=== PATIENT | male | born 1960 | race Caucasian/White ===

== ENCOUNTER → 2016-05-17 | Outpatient (CLI) | payer OTHER ==
[~2016-05-17] VITALS: Ht 182.9 cm; Wt 120.2 kg
[~2016-05-17] MED LIST: ALBU17IN INH; AMLO5TAB2 PO; ASPI81TA85 PO; ATOR40TA PO; CARV6.25 PO; DICL75TA PO; INSUDET SC; INSULANT SC; IRON GLYCINATE PO; LOSA50TA21 PO; METF500T PO; MULTTAB37 PO; NAPR220C PO; NAPR250T45 PO; NEUR800T PO; NS 1,000 ML IV SCH; PROPOFOL 200 MG/20 ML VIAL As Ordered ONE; ROBA750T4 PO; THERTAB30 PO; TYLE167L PO; TYLE325T5 PO; TYLE325T5 PR; VITA100T5 PO; VITA500C10 PO; VOLT1GEL24 TD; VOLT1GEL24 TOP
--- NOTE | 2016-05-17 09:34 | ROOR ---
Patient Name: Huang Castaneda Procedure Date: 05/17/2016 9:12 AM Date of : 1960 Age: 56 Room: [facility] Gender: Male Note Status: Finalized Procedure: Colonoscopy Indications: Screening for colorectal malignant neoplasm Providers: Miguel Ángel RENEE MD Referring MD: Sonya Menjivar NP Requesting Provider: Medicines: Monitored Anesthesia Care Complications: No immediate complications. Procedure: Pre-Anesthesia Assessment: - The heart rate, respiratory rate, oxygen saturations, blood pressure, adequacy of pulmonary ventilation, and response to care were monitored throughout the procedure. The Colonoscope was introduced through the anus and advanced to the cecum, identified by appendiceal orifice and ileocecal valve. The colonoscopy was performed without difficulty. The patient tolerated the procedure well. The quality of the bowel preparation was good. Findings: The perianal and digital rectal examinations were normal. Four sessile and semi-pedunculated polyps were found in the sigmoid colon and distal descending colon. The polyps were 6 to 9 mm in size. These polyps were removed with a cold snare. Resection and retrieval were complete. The exam was otherwise without abnormality on direct and retroflexion views. (Exam: Complete, Prep: Good or Excellent.) Impression: - Four 6 to 9 mm polyps in the sigmoid colon and in the distal descending colon, removed with a cold snare. Resected and retrieved. - The examination was otherwise normal on direct and retroflexion views. Recommendation: - Repeat colonoscopy in 3 years for surveillance. Miguel Ángel Renee MD Miguel Ángel RENEE MD 05/17/2016 9:33:43 AM This report has been signed electronically. Number of Addenda: 0 Note Initiated On: 05/17/2016 9:12 AM Estimated Blood Loss: Estimated blood loss: none.
[2016-05-17 09:45] VITALS: BP 156/101
== END | disposition home or self-care (01) ==
LOC: M OPP 08:11
PROVIDERS: ATTEND Internal Medicine Gastroenterology
DX: Z12.11 Encounter for screening for malignant neoplasm of colon (principal); D12.5 Benign neoplasm of sigmoid colon; D12.4 Benign neoplasm of descending colon; I10 Essential (primary) hypertension; E78.00 Pure hypercholesterolemia, unspecified; M19.90 Unspecified osteoarthritis, unspecified site; M48.00 Spinal stenosis, site unspecified; Z79.899 Other long term (current) drug therapy; Z79.82 Long term (current) use of aspirin; Z79.4 Long term (current) use of insulin; Z88.8 Allergy status to other drugs, medicaments and biological substances; Z88.1 Allergy status to other antibiotic agents

== ENCOUNTER → 2016-06-20 | Outpatient (CLI) | payer OTHER ==
[~2016-06-20] MED LIST changes: -NS 1,000 ML IV SCH; -PROPOFOL 200 MG/20 ML VIAL As Ordered ONE
[2016-06-23 00:09] LABS: PSA % FREE 28.4 % (.); PSA FREE 1.42 ng/mL
== END ==
LOC: M SMT 14:21
PROVIDERS: ATTEND Nurse Practitioner Women's Health
DX: R97.20 Elevated prostate specific antigen [PSA] (principal)

== ENCOUNTER → 2016-06-29 | Outpatient (CLI) | payer OTHER ==
--- NOTE | 2016-06-29 13:47 | REP ---
THYROID ULTRASOUND: Real-time sonographic evaluation of the thyroid performed and compared to a prior study of 02/26/2014. Right lobe measures 5.0 x 2.8 x 2.1 cm and left lobe 5.7 x 1.9 x 1.6 cm. Two nodules are seen in the right mid lobe. A lateral nodule measures 1.4 x 1.2 x 1.2 cm and just medial to this another nodule measures 7 x 5 x 8 mm. These are essentially unchanged when compared to the prior exam. IMPRESSION: Two stable right thyroid nodules as discussed above. Signed by Huang Denney MD 06/29/2016 05:39 P
== END ==
LOC: M RAD 11:37
PROVIDERS: ATTEND Nurse Practitioner Adult Health
DX: E04.9 Nontoxic goiter, unspecified (principal)

== ENCOUNTER → 2016-07-22 | Outpatient (CLI) | payer OTHER ==
[~2016-07-22] MED LIST changes: +ASCO500T PO; +DOXY10CA PO; +GABA600T PO; +LEVA500T PO; +LOSA100T36 PO; +TOPA50TA7 PO; +TORS20TA2 PO
--- NOTE | 2016-07-22 11:37 | REP ---
TRANSRECTAL PROSTATE ULTRASOUND WITH ULTRASOUND GUIDANCE FOR PROSTATE BIOPSY: Real-time sonographic evaluation of the prostate performed utilizing transrectal probe. The size of the gland is 5.1 x 4.4 x 5.4 cm for a total volume of 64.1 mL. Heterogeneous echotexture is noted throughout the prostate. A small nodule on the left measures 6 x 5 mm and a small nodule on the right measures 6 x 4 mm. Seminal vesicles appear unremarkable. Ultrasound guidance was provided by Dr. Casas who performed ultrasound guided biopsy of the prostate. Signed by Huang Denney MD 07/22/2016 04:38 P
== END ==
LOC: M SMT PRO 08:35
PROVIDERS: ATTEND Urology
DX: R97.20 Elevated prostate specific antigen [PSA] (principal); N41.8 Other inflammatory diseases of prostate; Z88.8 Allergy status to other drugs, medicaments and biological substances
CPT/HCPCS: 76872; 76942; G0416

== ENCOUNTER 2016-07-24 12:31 | Inpatient (IN) | payer OTHER ==
[~2016-07-24] VITALS: Ht 182.9 cm; Wt 116.2 kg
[~2016-07-24 12:31] MED LIST changes: -ASCO500T PO; -DOXY10CA PO; -GABA600T PO; -LEVA500T PO; -LOSA100T36 PO; -TOPA50TA7 PO; -TORS20TA2 PO
[2016-07-24 15:29] LABS: BASO % 0.2 % (0.0-1.0); EOS # 0.1 K/mm3 (0.0-0.50); EOS % 0.7 % (0.0-3.0); LARGE UNSTAINED CELL # 0.3 K/mm3 (0.0-0.4); LARGE UNSTAINED CELL % 1.5 % (0.0-4.0); LYMPH # 1.4 K/mm3 (1.5-4.5); MEAN CORPUSCULAR HEMOGLOBIN 31.2 pg (27.0-33.0); MEAN CORPUSCULAR HGB CONC 34.7 g/dl (32.0-36.5); MEAN CORPUSCULAR VOLUME 89.9 fl (80.0-96.0); MONO # 0.6 K/mm3 (0.0-0.8); MONO % 3.5 % (0.0-5.0); NEUTROPHILS # 14.6 K/mm3 (1.8-7.7); PLATELET COUNT, AUTOMATED 218 k/mm3 (150-450); RED CELL DISTRIBUTION WIDTH 13.7 % (11.5-14.5); WHITE BLOOD COUNT 16.9 K/mm3 (4.0-10.0)
[2016-07-24 15:45] LABS: ANION GAP 5 MEQ/L (8-16); BLOOD UREA NITROGEN 13 MG/DL (7-18); CARBON DIOXIDE LEVEL 30 MEQ/L (21-32); CHLORIDE LEVEL 102 MEQ/L (98-107); CREATININE FOR GFR 1.01 MG/DL (0.70-1.30); GLOMERULAR FILTRATION RATE > 60.0 (>56); GLUCOSE, FASTING 142 MG/DL (70-105); POTASSIUM SERUM 3.2 MEQ/L (3.5-5.1); SODIUM LEVEL 137 MEQ/L (136-145)
[2016-07-24] MEDS ORDERED: CIPROFLOXACIN 400 MG in APPROPRIATE DILUENT 1 EA IV ONE (16:00)
--- NOTE | 2016-07-24 16:31 | SMCUROLCON ---
Urology Consultation General Date of Consultation 07/24/16 Reason For Consultation This 56yo male patient is seen for Fever Tmax 103f post TRUS biopsy (07/22/16); leukocytosis; DM; HTN. PVR 63cc. Plan: UC/BC, IV Rocephin, 23hr observation with Hospitalist (notified). Full consultation dictated. History of Present Illness The patient is a -year-old with a past medical history for . Allergies Allergies: Coded Allergies: Bacitracin (Verified Allergy, Intermediate, RASH, 02/25/14) Neomycin (Verified Allergy, Intermediate, RASH, 02/25/14) Polymyxin B (Verified Allergy, Intermediate, RASH, 02/25/14) Vital Signs/I&O Vital Signs Date Time Temp Pulse Resp B/P (MAP) Pulse Ox O2 Delivery O2 Flow Rate FiO2 07/24/16 15:01 07/24/16 12:32 98.0 84 18 96 Room Air Laboratory Data 24H Labs Laboratory Tests 2 07/24/16 14:56: White Blood Count 16.9H, Red Blood Count 4.41, Hemoglobin 13.8L, Hematocrit 39.7L, Mean Corpuscular Volume 89.9, Mean Corpuscular Hemoglobin 31.2, Mean Corpuscular Hemoglobin Concent 34.7, Red Cell Distribution Width 13.7, Platelet Count 218, Neutrophils (%) (Auto) 86.0H, Lymphocytes (%) (Auto) 8.0L, Monocytes (%) (Auto) 3.5, Eosinophils (%) (Auto) 0.7, Basophils (%) (Auto) 0.2, Neutrophils # (Auto) 14.6H, Lymphocytes # (Auto) 1.4L, Monocytes # (Auto) 0.6, Eosinophils # (Auto) 0.1, Basophils # (Auto) 0.0, Large Unclassified Cells % 1.5 , Large Unclassified Cells # 0.3, Urine Appearance HAZY, Urine Color YELLOW, Urine pH 7.0, Urine Specific [place] 1.016, Urine Protein NEGATIVE, Urine Glucose (UA) NEGATIVE, Urine Ketones NEGATIVE, Urine Urobilinogen 0.2, Urine Bilirubin NEGATIVE, Urine Leukocyte Esterase 3+H, Urine Blood 1+H, Urine Nitrite NEGATIVE, Urine WBC (Auto) 166H, Urine RBC (Auto) 100H, Urine Hyaline Casts (Auto) 0, Urine Bacteria (Auto) 3+H, Urine Squamous Epithelial Cells 0, Urine Amorphous Sediment SMALLH, Urine Mucus (Auto) SMALL, Urine Sperm (Auto) SMALLH, Anion Gap 5L, Glomerular Filtration Rate > 60.0, Blood Urea Nitrogen 13 , Creatinine 1.01, Sodium Level 137, Potassium Level 3.2L, Chloride Level 102, Carbon Dioxide Level 30, Calcium Level 9.0 CBC/BMP Laboratory Tests 07/24/16 14:56 Red Blood Count 4.41, Mean Corpuscular Volume 89.9, Mean Corpuscular Hemoglobin 31.2, Mean Corpuscular Hemoglobin Concent 34.7, Red Cell Distribution Width 13.7 , Neutrophils (%) (Auto) 86.0 H, Lymphocytes (%) (Auto) 8.0 L, Monocytes (%) ( Auto) 3.5, Eosinophils (%) (Auto) 0.7, Basophils (%) (Auto) 0.2, Neutrophils # ( Auto) 14.6 H, Lymphocytes # (Auto) 1.4 L, Monocytes # (Auto) 0.6, Eosinophils # (Auto) 0.1, Basophils # (Auto) 0.0, Calcium Level 9.0 Microbiology Microbiology 07/24/16 Blood Culture, Received Pending 07/24/16 Urine Culture, Received Pending 07/24/16 Urine Culture, Received Pending JULIAN GREEN MD Jul 24, 2016 16:31
[2016-07-24] MEDS ORDERED: TORS20TA2 PO (16:36)
[2016-07-24] MEDS ORDERED: GABA600T PO (16:36)
[2016-07-24] MEDS ORDERED: LOSA100T36 PO (16:36)
[2016-07-24] MEDS ORDERED: ASCO500T PO (16:36)
[2016-07-24] MEDS ORDERED: TOPA50TA7 PO (16:36)
[2016-07-24] MEDS ORDERED: cefTRIAXone SOD 2 GM in D5W MINI-BAG PLUS 50 ML IV ONE (16:45)
[2016-07-24] MEDS ORDERED: GLUCAGON FOR INJ 1 MG VIAL (J1610) SC PRN (17:00)
[2016-07-24] MEDS ORDERED: DEXTROSE 50% 50 ML SYRINGE IV PRN (17:00)
[2016-07-24] MEDS ORDERED: GLUCOSE 4 GM CHEW TABLET PO PRN (17:00)
--- NOTE | 2016-07-24 17:22 | CR ---
DATE OF CONSULTATION: 07/24/2016 REASON FOR CONSULTATION: This 56-year-old was evaluated and consultation is requested by Dr. Norton on 07/24/2016, for fever. Following a transrectal ultrasonographic-guided biopsy of the prostate (07/22/2016), he developed a temperature maximum (T-max) of 103 degrees Fahrenheit. Following notification of urology, he was instructed to present to the emergency department (ED) at [facility]. Despite being on oral ciprofloxacin, intermittent febrile episodes are subjectively noted. There is no history of voiding symptoms, gross hematuria, urinary tract infection, urolithiasis, flank pain or constitutional symptoms. PAST MEDICAL HISTORY: Significant for diabetes mellitus, hypertension, hypercholesterolemia, spinal stenosis (L1-2), left ankle surgery and headaches. REVIEW OF SYSTEMS: Negative for pulmonary or cardiac pathology, thyroid problems, cerebrovascular accident (CVA), glaucoma, peptic ulcer disease, urolithiasis, cholelithiasis, or blood-borne disease. CURRENT MEDICATIONS: Metformin, Topamax, ProAir, Lantus, carvedilol, Lipitor, aspirin, losartan and Norvasc. ALLERGIES: He has no allergies to medications. SOCIAL HISTORY: He is and has two children. He is a [id number] smoker who quit 10 years previously. He has been dry from alcohol for three years. FAMILY HISTORY: Significant for lung cancer on the paternal side, and diabetes mellitus, hypertension and hypercholesterolemia on the maternal side. PHYSICAL EXAMINATION: General examination revealed a subjectively warm individual. His heart rate was 84, respiratory rate 18, blood pressure was 116/76, and temperature was 101.6 degrees Fahrenheit. Palpation of the head and neck failed to reveal the presence of lymphadenopathy. Auscultation of the chest is clear. Normal heart sounds. Examination of the back and abdomen were benign. He was moderately obese. Bladder scan post-void residual determination (07/24/2016) recorded 63 mL of urine. A urinalysis (07/24/2016) demonstrated 1+ microhematuria, 3+ leukocytes, with a pH of 7.0. Nitrites were negative. Serum hematologic and biochemical indices determination (07/24/2016) demonstrated a hemoglobin of 13.8, leukocyte count of 16.9 with a left shift, and a creatinine of 1.0. Urine and blood cultures (07/24/2016) are pending at the time of this dictation. ASSESSMENT: 1. Question sepsis, status post transrectal ultrasonographic-guided biopsy of the prostate (07/22/2016). 2. Elevated serum prostate-specific antigen (PSA). 3. Diabetes mellitus. 4. Hypertension. 5. Hypercholesterolemia. 6. Aspirin therapy. PLAN: The above findings were discussed with the patient, hospitalist, and emergentologist. Admission for 23-hour observation is appropriate. Serial complete blood count (CBC) determinations are appropriate for leukocytosis trend. Intravenous Rocephin will be provided until definitive urine and blood cultures are available. Giordano catheter may be deferred at present. Should you require additional information, please to not hesitate to contact me. Thank you for the confidence of your referral.
--- NOTE | 2016-07-24 17:24 | HPEPDOC ---
General Date of Admission 07/24/2016 Chief Complaint The patient is a 56-year-old male Presented to the ER with fever and burning with urination. History of Present Illness Patient is a 56 year old male with a PMHx of HTN, IDDM2, DLP, Hx of Polysubstance abuse and Alcoholism and Chronic Back pain who presented to the ER with fever and burning with urination. Patient notes that on Monday (07/22/2016) he had a prostate biopsy because of an elevated PSA found on blood work. Since the biopsy he was prescribed Ciprofloxacin prophylactically. He took the medication as prescribed. On Monday he noted that he had chills and measured his temperature at 103F. He went to sleep and noticed that he had urinary incontinence that morning. Upon urination he noted dysuria. He denies any blood in his urine. He denies nausea, vomiting, abdominal pain, and constipation, shortness of breath, chest pain, cough or palpitations. He does note a 1 day history of diarrhea after he took a laxative. Home Medications Scheduled (Theragran-M) 1 Tab Tab, 1 TAB PO DAILY, (Reported) Amlodipine Besylate (Amlodipine Besylate) 5 Mg Tab, 5 MG PO BID, (Reported) Ascorbic Acid (Ascorbic Acid) 500 Mg Tab, 500 MG PO DAILY, (Reported) Aspirin (Aspir-81) 81 Mg Tab, 81 MG PO DAILY, (Reported) Atorvastatin Calcium (Atorvastatin Calcium) 40 Mg Tab, 40 MG PO DAILY, (Reported ) Carvedilol (Carvedilol) 6.25 Mg Tab, 6.25 MG PO BID, (Reported) Gabapentin (Gabapentin) 600 Mg Tab, 600 MG PO TID, (Reported) Insulin Glargine (Lantus) 1 Units/0.01 Ml Susp, 40 UNITS SC QHS, (Reported) Losartan Potassium (Losartan Potassium) 100 Mg Tab, 100 MG PO DAILY, (Reported) Metformin Hydrochloride (Metformin HCl) 500 Mg Tab, 500 MG PO BID, (Reported) Topiramate (Topamax) 50 Mg Tab, 50 MG PO DAILY, (Reported) Torsemide (Torsemide) 20 Mg Tab, 40 MG PO DAILY, (Reported) Scheduled PRN (Voltaren) 1 % Gel, 1 DOSE TD for BACK PAIN, (Reported) applies to lower back Acetaminophen (Tylenol) 325 Mg Tab, 650 MG PO PRN PRN for PAIN, (Reported) Albuterol Sulfate (Ventolin Hfa) 200 Puff/8 Gm Aers, 2 PUFF INH Q4HP PRN for SHORTNESS OF BREATH, (Reported) Methocarbamol (Robaxin-750) 750 Mg Tab, 750 MG PO BID PRN for MUSCLE SPASMS, ( Reported) takes in the morning when he first starts moving, will take more prn spasms Allergies Coded Allergies: Bacitracin (Verified Allergy, Intermediate, RASH, 02/25/14) Neomycin (Verified Allergy, Intermediate, RASH, 02/25/14) Polymyxin B (Verified Allergy, Intermediate, RASH, 02/25/14) Past Medical History Medical History HTN, IDDM2, DLP, Hx of Polysubstance abuse and Alcoholism and Chronic Back pain Surgical History Left ankle fracture 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 Family History - Non-contributory Social History - Denies the use of alcohol, tobacco or illicit drugs - Denies recent travel or sick contacts - Lives with room mate - Occupation; retired [employer] worker Review of Symptoms Other systems Constitutional: Denies weight loss, change in appetite, or recent trauma Eyes: No visual changes or eye pain Ears, Nose, Throat: Denies nose bleeds, or difficulty swallowing Cardiovascular: Denies chest pain, sweating, or orthopnea Respiratory: Denies cough, wheezing, or shortness of breath GI: Emerson nausea, vomiting, abdominal pain or constipation, Positive diarrhea : Pain with urination and increased frequency Musculoskeletal: Denies joint pain or swelling Neuro / Psych: Denies muscle weakness or sensory loss Skin: No skin rashes noted All other review of systems negative; otherwise stated in history of present illness Vital Signs - Vitals: BP 116/76, HR 84, RR 18, Sat 96%RA, Temp 101.6F - General: Lying in bed, No acute distress, Speaking in full sentences, AAOx3 - HEENT: NC, AT, PERRLA, EOMI - CVS: RRR, +S1S2, - Lungs: Fair air entry bilaterally, Clear to auscultation, No wheezing / rales / rhonchi - Abdomen: Soft, Non-distended, Non-tender, + Bowel sounds x 4 - Extremities: + PPx4, No lower extremity edema, No calf tenderness - Neuro: No focal motor or sensory deficit - Skin: No visible rashes Laboratory Data Labs 24H Laboratory Tests 2 07/24/16 14:56: White Blood Count 16.9H, Red Blood Count 4.41, Hemoglobin 13.8L, Hematocrit 39.7L, Mean Corpuscular Volume 89.9, Mean Corpuscular Hemoglobin 31.2, Mean Corpuscular Hemoglobin Concent 34.7, Red Cell Distribution Width 13.7, Platelet Count 218, Neutrophils (%) (Auto) 86.0H, Lymphocytes (%) (Auto) 8.0L, Monocytes (%) (Auto) 3.5, Eosinophils (%) (Auto) 0.7, Basophils (%) (Auto) 0.2, Neutrophils # (Auto) 14.6H, Lymphocytes # (Auto) 1.4L, Monocytes # (Auto) 0.6, Eosinophils # (Auto) 0.1, Basophils # (Auto) 0.0, Large Unclassified Cells % 1.5 , Large Unclassified Cells # 0.3, Urine Appearance HAZY, Urine Color YELLOW, Urine pH 7.0, Urine Specific [place] 1.016, Urine Protein NEGATIVE, Urine Glucose (UA) NEGATIVE, Urine Ketones NEGATIVE, Urine Urobilinogen 0.2, Urine Bilirubin NEGATIVE, Urine Leukocyte Esterase 3+H, Urine Blood 1+H, Urine Nitrite NEGATIVE, Urine WBC (Auto) 166H, Urine RBC (Auto) 100H, Urine Hyaline Casts (Auto) 0, Urine Bacteria (Auto) 3+H, Urine Squamous Epithelial Cells 0, Urine Amorphous Sediment SMALLH, Urine Mucus (Auto) SMALL, Urine Sperm (Auto) SMALLH, Anion Gap 5L, Glomerular Filtration Rate > 60.0, Blood Urea Nitrogen 13 , Creatinine 1.01, Sodium Level 137, Potassium Level 3.2L, Chloride Level 102, Carbon Dioxide Level 30, Calcium Level 9.0 CBC/BMP Laboratory Tests 07/24/16 14:56 Red Blood Count 4.41, Mean Corpuscular Volume 89.9, Mean Corpuscular Hemoglobin 31.2, Mean Corpuscular Hemoglobin Concent 34.7, Red Cell Distribution Width 13.7 , Neutrophils (%) (Auto) 86.0 H, Lymphocytes (%) (Auto) 8.0 L, Monocytes (%) ( Auto) 3.5, Eosinophils (%) (Auto) 0.7, Basophils (%) (Auto) 0.2, Neutrophils # ( Auto) 14.6 H, Lymphocytes # (Auto) 1.4 L, Monocytes # (Auto) 0.6, Eosinophils # (Auto) 0.1, Basophils # (Auto) 0.0, Calcium Level 9.0 Microbiology Microbiology 07/24/16 Blood Culture, Received Pending 07/24/16 Urine Culture, Received Pending 07/24/16 Urine Culture, Received Pending Plan / VTE VTE Prophylaxis Ordered?: Yes Plan Plan Fever and dysuria likely 2/2 complicated urinary tract infection - Recent history of prostate biopsy and failure out prophylactic Ciprofloxacin - Physical unrevealing - Elevated WBC - UA consistent with infection - Will check stat lactic acid - Will follow urine culture and blood cultures - c/w Ceftriaxone for now - Discussed case with Urology (Dr. Booth) will be on consult Elevated creatinine likely 2/2 dehydration - will give gentle IV fluid hydration Asthma - c/w albuterol inhaled therapy HTN - c/ amlodipine and carvedilol with holding parameters - will hold torsemide and losartan (re: mild Cr elevation) IDDM2 - c/w ISS - Will c/w home Lantus DLP - c/w atorvastatin Headache - c/w topiramate Hx of Polysubstance abuse and Alcoholism Chronic Back pain - c/w gabapentin and topical cream DVT prophylaxis - Will start SCDs KAYE ZAMBRANO MD Jul 24, 2016 17:24
[2016-07-24] MEDS ORDERED: ALBUTEROL 90 MCG/ACT 8GM HFA INHALER INH PRN (17:30)
[2016-07-24] MEDS: NS 1,000 ML IV SCH (17:30)
[2016-07-24] MEDS ORDERED: METHOCARBAMOL 750 MG TAB PO PRN (17:30)
[2016-07-24] MEDS: ACETAMINOPHEN TAB 650MG DOSE (2X325MG) PO PRN ×2 (17:34→22:29)
[2016-07-24] MEDS: HumaLOG INSULIN (NovoLOG) PER UNIT SC SCH ×2 (17:57→21:00)
[2016-07-24] MEDS ORDERED: POTASSIUM CHLORIDE 10 MEQ SR TABLET PO ONE (19:00)
[2016-07-24] MEDS: GABAPENTIN 300 MG CAP PO SCH (21:03)
[2016-07-24] MEDS: amLODIPine 5 MG TAB PO SCH (21:05)
[2016-07-24] MEDS: CARVedilol 6.25 MG TAB PO SCH (21:05)
[2016-07-24] MEDS: LEVEMIR (INSULIN DETEMIR) 1 UNITS/0.01ML SC SCH (21:06)
[2016-07-24 22:00] VITALS: BP 136/66
[2016-07-25 02:00] VITALS: BP 113/60
[2016-07-25] MEDS: NS 1,000 ML IV SCH (05:59)
[2016-07-25 06:00] VITALS: BP 122/58
[2016-07-25] MEDS: cefTRIAXone SOD 2 GM in D5W MINI-BAG PLUS 50 ML IV SCH ×2 (06:03→17:19)
[2016-07-25 08:03] LABS: BASO % 0.3 % (0.0-1.0); EOS # 0.1 K/mm3 (0.0-0.50); EOS % 0.9 % (0.0-3.0); LARGE UNSTAINED CELL # 0.3 K/mm3 (0.0-0.4); LARGE UNSTAINED CELL % 2.3 % (0.0-4.0); LYMPH # 1.6 K/mm3 (1.5-4.5); LYMPH % 12.2 % (24.0-44.0); MEAN CORPUSCULAR HEMOGLOBIN 30.1 pg (27.0-33.0); MEAN CORPUSCULAR HGB CONC 33.3 g/dl (32.0-36.5); MEAN CORPUSCULAR VOLUME 90.5 fl (80.0-96.0); MONO # 0.8 K/mm3 (0.0-0.8); MONO % 6.7 % (0.0-5.0); NEUTROPHILS # 8.8 K/mm3 (1.8-7.7); NEUTROPHILS % 77.5 % (36.0-66.0); PLATELET COUNT, AUTOMATED 211 k/mm3 (150-450); RED CELL DISTRIBUTION WIDTH 13.8 % (11.5-14.5); WHITE BLOOD COUNT 11.4 K/mm3 (4.0-10.0)
[2016-07-25 08:19] LABS: ALBUMIN 3.2 GM/DL (3.2-5.2); ALBUMIN/GLOBULIN RATIO 0.74 (1.00-1.93); ALKALINE PHOSPHATASE 57 U/L (45-117); ALT/SGPT 27 U/L (12-78); ANION GAP 9 MEQ/L (8-16); AST/SGOT 13 U/L (15-37); BILIRUBIN,TOTAL 0.6 MG/DL (0.2-1.0); BLOOD UREA NITROGEN 9 MG/DL (7-18); CALCIUM LEVEL 8.3 MG/DL (8.5-10.1); CARBON DIOXIDE LEVEL 23 MEQ/L (21-32); CHLORIDE LEVEL 107 MEQ/L (98-107); CREATININE FOR GFR 0.83 MG/DL (0.70-1.30); GLOMERULAR FILTRATION RATE > 60.0 (>56); GLUCOSE, FASTING 149 MG/DL (70-105); POTASSIUM SERUM 3.5 MEQ/L (3.5-5.1); SODIUM LEVEL 139 MEQ/L (136-145); TOTAL PROTEIN 7.5 GM/DL (6.4-8.2)
[2016-07-25] MEDS: GABAPENTIN 300 MG CAP PO SCH ×3 (09:07→20:28)
[2016-07-25] MEDS: ATORVASTATIN 20 MG TAB PO SCH (09:07)
[2016-07-25] MEDS: HumaLOG INSULIN (NovoLOG) PER UNIT SC SCH ×4 (09:07→20:29)
[2016-07-25] MEDS: TOPIRAMATE (TopAMAX) 25 MG TAB PO SCH (09:08)
[2016-07-25] MEDS: ASPIRIN 81 MG ENTERIC TAB PO SCH (09:08)
[2016-07-25] MEDS: amLODIPine 5 MG TAB PO SCH ×2 (09:08→20:28)
[2016-07-25] MEDS: CARVedilol 6.25 MG TAB PO SCH ×2 (09:09→20:28)
[2016-07-25 10:00] VITALS: BP 125/72
--- NOTE | 2016-07-25 13:37 | IPNPDOC ---
Subjective Date Seen The patient was seen on 07/25/16. Subjective Chief Complaint/HPI The patient is a 56-year-old male admitted with a reason for visit of Urinary Tract Infection/Fever. General: Denies: Chills, Night Sweats Constitutional: Denies: Chills, Fever Eyes: Denies: Pain, Vision change ENT: Denies: Head Aches, Ear Pain Skin: Denies: Rash, Lesions Pulmonary: Denies: Dyspnea, Cough Cardiovascular: Denies: Chest Pain, Palpitations Gastrointestinal: Denies: Nausea, Vomiting Genitourinary: Denies: Dysuria, Frequency Hematologic: Denies: Bruising, Bleeding Excessively Musculoskeletal: Denies: Neck Pain, Back Pain Objective Physical Examination General Exam: Positive: Alert, Cooperative, No Acute Distress ENT Exam: Positive: Atraumatic, Mucous membr. moist/pink Neck Exam: Negative: JVD Chest Exam: Positive: Clear to auscultation, Normal air movement Heart Exam: Positive: Rate Normal, Normal S1, Normal S2 Abdomen Exam: Positive: Soft, Tenderness Extremity Exam: Negative: Tenderness, Swelling Psych Exam: Positive: Oriented x 3 Assessment /Plan Plan/VTE VTE Prophylaxis Ordered?: Yes Plan Urinary Tract Infection following Trans-Rectal Prostate Ca Biopsy WBC trending downward Urine culture and blood cultures pending Cont Ceftriaxone until cultures are available Urology input appreciated Acute Kidney Injury, resolved s/p IV fluid hydration Lactic acidosis, resolved Status post IV fluid hydration Asthma, stable Continue albuterol inhaled therapy HTN Continue amlodipine and carvedilol We will restart losartan and Lasix tomorrow IDDM2 Continue current regimen Dyslipidemia Continue atorvastatin History of migrainous headaches Continue topiramate Chronic Back pain Continue gabapentin and topical cream DVT prophylaxis SCDs Disposition-anticipate discharge in 24 hours pending clinical improvement. VS, I&O, 24H, [facility] Vital Signs/I&O Vital Signs Date Time Temp Pulse Resp B/P (MAP) Pulse Ox O2 Delivery O2 Flow Rate FiO2 07/25/16 10:00 98.4 85 20 125/72 (89) 96 Room Air I&O- Last 24 Hours up to 6 AM 07/25/16 06:00 Intake Total 1550 ml Output Total 700 ml Balance 850 ml Laboratory Data 24H LABS Laboratory Tests 2 07/24/16 14:56: White Blood Count 16.9H, Red Blood Count 4.41, Hemoglobin 13.8L, Hematocrit 39.7L, Mean Corpuscular Volume 89.9, Mean Corpuscular Hemoglobin 31.2, Mean Corpuscular Hemoglobin Concent 34.7, Red Cell Distribution Width 13.7, Platelet Count 218, Neutrophils (%) (Auto) 86.0H, Lymphocytes (%) (Auto) 8.0L, Monocytes (%) (Auto) 3.5, Eosinophils (%) (Auto) 0.7, Basophils (%) (Auto) 0.2, Neutrophils # (Auto) 14.6H, Lymphocytes # (Auto) 1.4L, Monocytes # (Auto) 0.6, Eosinophils # (Auto) 0.1, Basophils # (Auto) 0.0, Large Unclassified Cells % 1.5 , Large Unclassified Cells # 0.3, Urine Appearance HAZY, Urine Color YELLOW, Urine pH 7.0, Urine Specific [place] 1.016, Urine Protein NEGATIVE, Urine Glucose (UA) NEGATIVE, Urine Ketones NEGATIVE, Urine Urobilinogen 0.2, Urine Bilirubin NEGATIVE, Urine Leukocyte Esterase 3+H, Urine Blood 1+H, Urine Nitrite NEGATIVE, Urine WBC (Auto) 166H, Urine RBC (Auto) 100H, Urine Hyaline Casts (Auto) 0, Urine Bacteria (Auto) 3+H, Urine Squamous Epithelial Cells 0, Urine Amorphous Sediment SMALLH, Urine Mucus (Auto) SMALL, Urine Sperm (Auto) SMALLH, Anion Gap 5L, Glomerular Filtration Rate > 60.0, Blood Urea Nitrogen 13 , Creatinine 1.01, Sodium Level 137, Potassium Level 3.2L, Chloride Level 102, Carbon Dioxide Level 30, Calcium Level 9.0 07/24/16 17:52: Bedside Glucose (Misc Panel) 143H 07/24/16 19:04: Lactic Acid Level 2.8*H 07/24/16 20:16: Bedside Glucose (Misc Panel) 149H 07/24/16 23:21: Lactic Acid Followup at 4 Hours 1.0 07/25/16 07:04: White Blood Count 11.4H, Red Blood Count 4.11L, Hemoglobin 12.4L, Hematocrit 37.2L, Mean Corpuscular Volume 90.5, Mean Corpuscular Hemoglobin 30.1, Mean Corpuscular Hemoglobin Concent 33.3, Red Cell Distribution Width 13.8, Platelet Count 211, Neutrophils (%) (Auto) 77.5H, Lymphocytes (%) (Auto) 12.2L, Monocytes (%) (Auto) 6.7H, Eosinophils (%) (Auto) 0.9, Basophils (%) (Auto) 0.3 , Neutrophils # (Auto) 8.8H, Lymphocytes # (Auto) 1.6, Monocytes # (Auto) 0.8, Eosinophils # (Auto) 0.1, Basophils # (Auto) 0.0, Large Unclassified Cells % 2.3 , Large Unclassified Cells # 0.3, Anion Gap 9, Glomerular Filtration Rate > 60.0 , Blood Urea Nitrogen 9, Creatinine 0.83, Sodium Level 139, Potassium Level 3.5 , Chloride Level 107, Carbon Dioxide Level 23, Calcium Level 8.3L, Aspartate Amino Transf (AST/SGOT) 13L, Alanine Aminotransferase (ALT/SGPT) 27, Alkaline Phosphatase 57, Total Bilirubin 0.6, Total Protein 7.5, Albumin 3.2, Magnesium Level 2.0, Albumin/Globulin Ratio 0.74L 07/25/16 11:57: Bedside Glucose (Misc Panel) 186H CBC/BMP Laboratory Tests 07/24/16 14:56 Red Blood Count 4.41, Mean Corpuscular Volume 89.9, Mean Corpuscular Hemoglobin 31.2, Mean Corpuscular Hemoglobin Concent 34.7, Red Cell Distribution Width 13.7 , Neutrophils (%) (Auto) 86.0 H, Lymphocytes (%) (Auto) 8.0 L, Monocytes (%) ( Auto) 3.5, Eosinophils (%) (Auto) 0.7, Basophils (%) (Auto) 0.2, Neutrophils # ( Auto) 14.6 H, Lymphocytes # (Auto) 1.4 L, Monocytes # (Auto) 0.6, Eosinophils # (Auto) 0.1, Basophils # (Auto) 0.0, Calcium Level 9.0 07/25/16 07:04 Red Blood Count 4.11 L, Mean Corpuscular Volume 90.5, Mean Corpuscular Hemoglobin 30.1, Mean Corpuscular Hemoglobin Concent 33.3, Red Cell Distribution Width 13.8, Neutrophils (%) (Auto) 77.5 H, Lymphocytes (%) (Auto) 12.2 L, Monocytes (%) (Auto) 6.7 H, Eosinophils (%) (Auto) 0.9, Basophils (%) ( Auto) 0.3, Neutrophils # (Auto) 8.8 H, Lymphocytes # (Auto) 1.6, Monocytes # ( Auto) 0.8, Eosinophils # (Auto) 0.1, Basophils # (Auto) 0.0, Calcium Level 8.3 L , Aspartate Amino Transf (AST/SGOT) 13 L, Alanine Aminotransferase (ALT/SGPT) 27 , Alkaline Phosphatase 57, Total Bilirubin 0.6, Total Protein 7.5, Albumin 3.2 Microbiology Microbiology 07/24/16 Blood Culture, Received Pending 07/24/16 Urine Culture, Received Pending 07/24/16 Urine Culture, Received Pending TAVIA LUIS MD July 25, 2016 13:37
[2016-07-25 14:00] VITALS: BP 136/81
[2016-07-25] MEDS: ACETAMINOPHEN TAB 650MG DOSE (2X325MG) PO PRN ×2 (15:43→20:28)
[2016-07-25 18:00] VITALS: BP 132/67
[2016-07-25 20:30] VITALS: BP 143/88
[2016-07-25] MEDS: LEVEMIR (INSULIN DETEMIR) 1 UNITS/0.01ML SC SCH (20:34)
[2016-07-26] MEDS: ACETAMINOPHEN TAB 650MG DOSE (2X325MG) PO PRN ×3 (01:25→17:08)
[2016-07-26 02:00] VITALS: BP 145/69
[2016-07-26] MEDS: cefTRIAXone SOD 2 GM in D5W MINI-BAG PLUS 50 ML IV SCH ×2 (05:54→17:09)
[2016-07-26 06:00] VITALS: BP 137/80
[2016-07-26 07:14] LABS: BASO % 0.5 % (0.0-1.0); EOS # 0.2 K/mm3 (0.0-0.50); LARGE UNSTAINED CELL # 0.2 K/mm3 (0.0-0.4); LARGE UNSTAINED CELL % 3.1 % (0.0-4.0); LYMPH # 1.2 K/mm3 (1.5-4.5); LYMPH % 12.2 % (24.0-44.0); MEAN CORPUSCULAR HEMOGLOBIN 30.6 pg (27.0-33.0); MEAN CORPUSCULAR HGB CONC 33.9 g/dl (32.0-36.5); MEAN CORPUSCULAR VOLUME 90.4 fl (80.0-96.0); MONO # 0.5 K/mm3 (0.0-0.8); MONO % 6.4 % (0.0-5.0); NEUTROPHILS # 5.9 K/mm3 (1.8-7.7); NEUTROPHILS % 75.8 % (36.0-66.0); PLATELET COUNT, AUTOMATED 188 k/mm3 (150-450); RED CELL DISTRIBUTION WIDTH 13.8 % (11.5-14.5); WHITE BLOOD COUNT 7.8 K/mm3 (4.0-10.0)
[2016-07-26 07:33] LABS: ALBUMIN 2.9 GM/DL (3.2-5.2); ALBUMIN/GLOBULIN RATIO 0.74 (1.00-1.93); ALKALINE PHOSPHATASE 68 U/L (45-117); ALT/SGPT 48 U/L (12-78); ANION GAP 11 MEQ/L (8-16); AST/SGOT 31 U/L (15-37); BILIRUBIN,TOTAL 0.4 MG/DL (0.2-1.0); BLOOD UREA NITROGEN 10 MG/DL (7-18); CALCIUM LEVEL 8.1 MG/DL (8.5-10.1); CARBON DIOXIDE LEVEL 18 MEQ/L (21-32); CHLORIDE LEVEL 112 MEQ/L (98-107); GLOMERULAR FILTRATION RATE > 60.0 (>56); GLUCOSE, FASTING 131 MG/DL (70-105); MAGNESIUM LEVEL 1.7 MG/DL (1.8-2.4); POTASSIUM SERUM 3.6 MEQ/L (3.5-5.1); SODIUM LEVEL 141 MEQ/L (136-145); TOTAL PROTEIN 6.8 GM/DL (6.4-8.2)
[2016-07-26] MEDS: HumaLOG INSULIN (NovoLOG) PER UNIT SC SCH ×4 (08:03→21:00)
[2016-07-26] MEDS: GABAPENTIN 300 MG CAP PO SCH ×3 (08:03→21:40)
[2016-07-26] MEDS: ASPIRIN 81 MG ENTERIC TAB PO SCH (08:04)
[2016-07-26] MEDS: TOPIRAMATE (TopAMAX) 25 MG TAB PO SCH (08:04)
[2016-07-26] MEDS: ATORVASTATIN 20 MG TAB PO SCH (08:04)
[2016-07-26] MEDS: CARVedilol 6.25 MG TAB PO SCH ×2 (08:06→21:41)
[2016-07-26] MEDS: amLODIPine 5 MG TAB PO SCH ×2 (08:07→21:40)
[2016-07-26 10:00] VITALS: BP 117/70
[2016-07-26] MEDS ORDERED: MAGNESIUM OXIDE 400 MG TAB (MAG-OX) PO ONE (11:00)
--- NOTE | 2016-07-26 11:07 | IPNPDOC ---
Subjective Date Seen The patient was seen on 07/26/16. Subjective Chief Complaint/HPI The patient is a 56-year-old male admitted with a reason for visit of Urinary Tract Infection/Fever. General: Reports: Fatigue, Malaise, Denies: Chills, Night Sweats Constitutional: Reports: Fever, Denies: Chills Eyes: Denies: Pain, Vision change ENT: Denies: Head Aches, Ear Pain Skin: Denies: Rash, Lesions Pulmonary: Reports: Cough, Denies: Dyspnea Cardiovascular: Denies: Chest Pain, Palpitations Gastrointestinal: Denies: Nausea, Vomiting Genitourinary: Denies: Dysuria, Frequency Hematologic: Denies: Bruising, Bleeding Excessively Objective Physical Examination General Exam: Positive: Alert, Cooperative, No Acute Distress ENT Exam: Positive: Atraumatic, Mucous membr. moist/pink Neck Exam: Negative: JVD Chest Exam: Positive: Clear to auscultation, Normal air movement Heart Exam: Positive: Rate Normal, Normal S1, Normal S2 Abdomen Exam: Positive: Soft, Tenderness Extremity Exam: Negative: Tenderness, Swelling Psych Exam: Positive: Oriented x 3 Assessment /Plan Plan/VTE VTE Prophylaxis Ordered?: Yes Plan Urinary Tract Infection following Trans-Rectal Prostate Ca Biopsy WBC WNL Urine culture noted and blood cultures unrevealing thus far Cont Ceftriaxone for now Urology input appreciated Fevers, Generalized Malaise possibly 2/2 Tick Borne Illness Patient does state that he removed a tick from his belly button over 1 week ago which he states may have been on his body for some time as he does have regular exposure to ticks Lyme studies ordered We will begin the patient on doxycycline Chest x-ray ordered to rule out pneumonia as the patient is also stating that he has been having a cough, respiratory panel negative Trend fever curve Acute Kidney Injury, resolved s/p IV fluid hydration Lactic acidosis, resolved Status post IV fluid hydration Asthma, stable Continue albuterol inhaled therapy HTN Continue amlodipine and carvedilol We will restart losartan and Lasix tomorrow [id number] Continue current regimen Dyslipidemia Continue atorvastatin History of migrainous headaches Continue topiramate Chronic Back pain Continue gabapentin and topical cream DVT prophylaxis SCDs Disposition-Will await Lyme studies, trend fever curve, and anticipate discharge in the next 24-48 hours. VS, I&O, 24H, Fishbone Vital Signs/I&O Vital Signs Date Time Temp Pulse Resp B/P (MAP) Pulse Ox O2 Delivery O2 Flow Rate FiO2 07/26/16 08:07 81 174/83 07/26/16 06:00 96.6 18 96 Room Air I&O- Last 24 Hours up to 6 AM 07/26/16 06:00 Intake Total 4170 ml Output Total 3200 ml Balance 970 ml Laboratory Data 24H LABS Laboratory Tests 2 07/25/16 11:57: Bedside Glucose (Misc Panel) 186H 07/25/16 16:55: Bedside Glucose (Misc Panel) 131H 07/25/16 20:26: Bedside Glucose (Misc Panel) 165H 07/26/16 06:48: White Blood Count 7.8, Red Blood Count 3.95L, Hemoglobin 12.1L, Hematocrit 35.7L , Mean Corpuscular Volume 90.4, Mean Corpuscular Hemoglobin 30.6, Mean Corpuscular Hemoglobin Concent 33.9, Red Cell Distribution Width 13.8, Platelet Count 188, Neutrophils (%) (Auto) 75.8H, Lymphocytes (%) (Auto) 12.2L, Monocytes (%) (Auto) 6.4H, Eosinophils (%) (Auto) 2.0, Basophils (%) (Auto) 0.5 , Neutrophils # (Auto) 5.9, Lymphocytes # (Auto) 1.2L, Monocytes # (Auto) 0.5, Eosinophils # (Auto) 0.2, Basophils # (Auto) 0.0, Large Unclassified Cells % 3.1 , Large Unclassified Cells # 0.2, Anion Gap 11, Glomerular Filtration Rate > 60.0, Blood Urea Nitrogen 10, Creatinine 0.70, Sodium Level 141, Potassium Level 3.6, Chloride Level 112H, Carbon Dioxide Level 18L, Calcium Level 8.1L, Aspartate Amino Transf (AST/SGOT) 31, Alanine Aminotransferase (ALT/SGPT) 48, Alkaline Phosphatase 68, Total Bilirubin 0.4, Total Protein 6.8, Albumin 2.9L, Magnesium Level 1.7L, Albumin/Globulin Ratio 0.74L CBC/BMP Laboratory Tests 07/26/16 06:48 Red Blood Count 3.95 L, Mean Corpuscular Volume 90.4, Mean Corpuscular Hemoglobin 30.6, Mean Corpuscular Hemoglobin Concent 33.9, Red Cell Distribution Width 13.8, Neutrophils (%) (Auto) 75.8 H, Lymphocytes (%) (Auto) 12.2 L, Monocytes (%) (Auto) 6.4 H, Eosinophils (%) (Auto) 2.0, Basophils (%) ( Auto) 0.5, Neutrophils # (Auto) 5.9, Lymphocytes # (Auto) 1.2 L, Monocytes # ( Auto) 0.5, Eosinophils # (Auto) 0.2, Basophils # (Auto) 0.0, Calcium Level 8.1 L , Aspartate Amino Transf (AST/SGOT) 31, Alanine Aminotransferase (ALT/SGPT) 48, Alkaline Phosphatase 68, Total Bilirubin 0.4, Total Protein 6.8, Albumin 2.9 L Microbiology Microbiology 07/24/16 Blood Culture - Preliminary, Resulted No growth after 24 hours . All specim... 07/25/16 Respiratory Virus Panel (PCR) ([facility]) - Final, Complete 07/24/16 Urine Culture - Final, Complete Escherichia Coli TAVIA LUIS MD July 26, 2016 11:07
[2016-07-26] MEDS: DOXYCYCLINE HYCLATE 100 MG TAB PO SCH ×2 (11:48→21:40)
[2016-07-26 14:00] VITALS: BP 154/84
[2016-07-26 18:00] VITALS: BP 149/78
[2016-07-26] MEDS ORDERED: DOXYCYCLINE HYCLATE 100 MG TAB PO SCH (21:00)
[2016-07-26] MEDS: LEVEMIR (INSULIN DETEMIR) 1 UNITS/0.01ML SC SCH (21:41)
[2016-07-26 22:00] VITALS: BP 157/74
[2016-07-27] MEDS: ACETAMINOPHEN TAB 650MG DOSE (2X325MG) PO PRN ×2 (01:19→08:43)
[2016-07-27 02:00] VITALS: BP 140/77
--- NOTE | 2016-07-27 03:14 | REP ---
Clinical: Cough. Technique: PA and lateral. Comparison: 03/04/2015. Findings: Mediastinum and cardiac silhouette are normal. Lung morales demonstrate chronic-appearing changes. No focal consolidation, effusion, or pneumothorax. Skeletal structures demonstrate age-related degenerative changes. Impression: Chronic-appearing changes. No obvious acute cardiopulmonary process. Signed by Alphonso Liao MD 07/27/2016 03:06 A
[2016-07-27] MEDS: cefTRIAXone SOD 2 GM in D5W MINI-BAG PLUS 50 ML IV SCH (05:33)
[2016-07-27 06:00] VITALS: BP 156/85
[2016-07-27 06:59] LABS: BASO % 0.4 % (0.0-1.0); EOS # 0.2 K/mm3 (0.0-0.50); EOS % 2.9 % (0.0-3.0); LARGE UNSTAINED CELL # 0.3 K/mm3 (0.0-0.4); LARGE UNSTAINED CELL % 5.3 % (0.0-4.0); LYMPH # 1.4 K/mm3 (1.5-4.5); LYMPH % 19.4 % (24.0-44.0); MEAN CORPUSCULAR HEMOGLOBIN 30.4 pg (27.0-33.0); MEAN CORPUSCULAR HGB CONC 33.5 g/dl (32.0-36.5); MEAN CORPUSCULAR VOLUME 90.6 fl (80.0-96.0); MONO # 0.5 K/mm3 (0.0-0.8); MONO % 8.4 % (0.0-5.0); NEUTROPHILS # 3.7 K/mm3 (1.8-7.7); NEUTROPHILS % 63.5 % (36.0-66.0); PLATELET COUNT, AUTOMATED 193 k/mm3 (150-450); RED CELL DISTRIBUTION WIDTH 13.8 % (11.5-14.5); WHITE BLOOD COUNT 5.8 K/mm3 (4.0-10.0)
[2016-07-27 07:28] LABS: ALBUMIN/GLOBULIN RATIO 0.73 (1.00-1.93); ALKALINE PHOSPHATASE 66 U/L (45-117); ALT/SGPT 66 U/L (12-78); ANION GAP 8 MEQ/L (8-16); AST/SGOT 39 U/L (15-37); BILIRUBIN,TOTAL 0.4 MG/DL (0.2-1.0); BLOOD UREA NITROGEN 7 MG/DL (7-18); CALCIUM LEVEL 8.4 MG/DL (8.5-10.1); CARBON DIOXIDE LEVEL 21 MEQ/L (21-32); CHLORIDE LEVEL 113 MEQ/L (98-107); GLOMERULAR FILTRATION RATE > 60.0 (>56); GLUCOSE, FASTING 130 MG/DL (70-105); MAGNESIUM LEVEL 1.9 MG/DL (1.8-2.4); POTASSIUM SERUM 3.6 MEQ/L (3.5-5.1); SODIUM LEVEL 142 MEQ/L (136-145); TOTAL PROTEIN 7.1 GM/DL (6.4-8.2)
[2016-07-27] MEDS: ATORVASTATIN 20 MG TAB PO SCH (08:34)
[2016-07-27] MEDS: TOPIRAMATE (TopAMAX) 25 MG TAB PO SCH (08:34)
[2016-07-27] MEDS: ASPIRIN 81 MG ENTERIC TAB PO SCH (08:34)
[2016-07-27 08:35] VITALS: BP 140/83
[2016-07-27] MEDS: CARVedilol 6.25 MG TAB PO SCH (08:35)
[2016-07-27] MEDS: GABAPENTIN 300 MG CAP PO SCH (08:35)
[2016-07-27] MEDS: DOXYCYCLINE HYCLATE 100 MG TAB PO SCH (08:35)
[2016-07-27] MEDS: amLODIPine 5 MG TAB PO SCH (08:35)
[2016-07-27] MEDS: HumaLOG INSULIN (NovoLOG) PER UNIT SC SCH (08:36)
[2016-07-27 10:00] VITALS: BP 143/86
[2016-07-27] MEDS ORDERED: DOXY10CA PO (11:18)
[2016-07-27] MEDS ORDERED: LEVA500T PO (11:18)
--- NOTE | 2016-07-27 14:14 | DS.PDOC ---
Discharge Summary General Date of Admission Jul 24, 2016 at 18:39 Date of Discharge 07/27/16 Discharge Summary PROCEDURES PERFORMED DURING STAY: None. ADMITTING DIAGNOSES: 1. . Urinary tract infection 2. . Possible tickborne illness 3. . Diabetes mellitus DISCHARGE DIAGNOSES: 1. . Urinary tract infection 2. . Possible tickborne illness 3. . Diabetes mellitus COMPLICATIONS/CHIEF COMPLAINT: Urinary Tract Infection/Fever. HISTORY OF PRESENT ILLNESS: . 57-year-old male with past medical history of hypertension, diabetes mellitus, dyslipidemia, polysubstance abuse, alcoholism, chronic back pain presented to the ER with a chief complaint of fever and burning with urination. Of note, the patient did have a transrectal prostate biopsy for an elevated PSA level as an outpatient. The patient was discharged with ciprofloxacin prophylactically. However, over the next few days the patient noted that he had fevers, chills and burning on urination. The patient was seen in the ER by urology and the hospitalist team was called to admit the patient for further evaluation and management. During the patient's hospitalization, he was started on Rocephin for urinary tract infection. Blood cultures were noted to be negative. Urine culture was noted to be positive for Escherichia coli. In addition, the patient also stated during his hospitalization that he did have exposure to ticks one week ago, and notes that his symptoms did start following his exposure. He denies any dermatologic manifestations. At this time, the patient has been treated for his urinary tract infection and notes that he is feeling better. In addition, the patient has also been empirically treated with doxycycline 100 mg twice a day, a course which he will complete over 10 days total. At this time, the patient states that he is feeling better and is eager to go home. I have asked the patient to follow-up with his primary care physician within one week. In addition, if his symptoms were to worsen or persist I've asked the patient to return to the ER for further evaluation and management. DISCHARGE MEDICATIONS: Please see below. ALLERGIES: Please see below. PHYSICAL EXAMINATION ON DISCHARGE: VITAL SIGNS: Please see below. General Exam: Positive: Alert, Cooperative, No Acute Distress ENT Exam: Positive: Atraumatic, Mucous membr. moist/pink Neck Exam: Negative: JVD Chest Exam: Positive: Clear to auscultation, Normal air movement Heart Exam: Positive: Rate Normal, Normal S1, Normal S2 Abdomen Exam: Positive: Soft, Tenderness Extremity Exam: Negative: Tenderness, Swelling Psych Exam: Positive: Oriented x 3 LABORATORY DATA: Please see below. IMAGING: Clinical: Cough. Technique: PA and lateral. Comparison: 03/04/2015. Findings: Mediastinum and cardiac silhouette are normal. Lung morales demonstrate chronic-appearing changes. No focal consolidation, effusion, or pneumothorax. Skeletal structures demonstrate age-related degenerative changes. Impression: Chronic-appearing changes. No obvious acute cardiopulmonary process. PROGNOSIS: Medically stable ACTIVITY: As tolerated. DIET: . Consistent carbohydrate diet DISCHARGE PLAN: Home DISPOSITION: Home, Self-Care. DISCHARGE INSTRUCTIONS: 1. . Follow-up with primary care physician within one week 2. . Return to ER if symptoms return or persist DISCHARGE CONDITION: Stable. TIME SPENT ON DISCHARGE: Greater than 30 minutes. Vital Signs/I&Os Vital Signs Date Time Temp Pulse Resp B/P (MAP) Pulse Ox O2 Delivery O2 Flow Rate FiO2 07/27/16 10:00 98.4 77 18 143/86 (105) 97 Room Air I&O- Last 24 Hours up to 6 AM 07/27/16 05:59 Intake Total 3250 ml Output Total 2050 ml Balance 1200 ml Laboratory Data Labs 24H Laboratory Tests 2 07/26/16 16:25: Bedside Glucose (Misc Panel) 122H 07/26/16 21:01: Bedside Glucose (Misc Panel) 220H 07/27/16 06:22: White Blood Count 5.8, Red Blood Count 4.03L, Hemoglobin 12.2L, Hematocrit 36.5L , Mean Corpuscular Volume 90.6, Mean Corpuscular Hemoglobin 30.4, Mean Corpuscular Hemoglobin Concent 33.5, Red Cell Distribution Width 13.8, Platelet Count 193, Neutrophils (%) (Auto) 63.5, Lymphocytes (%) (Auto) 19.4L, Monocytes (%) (Auto) 8.4H, Eosinophils (%) (Auto) 2.9, Basophils (%) (Auto) 0.4, Neutrophils # (Auto) 3.7, Lymphocytes # (Auto) 1.4L, Monocytes # (Auto) 0.5, Eosinophils # (Auto) 0.2, Basophils # (Auto) 0.0, Large Unclassified Cells % 5.3H, Large Unclassified Cells # 0.3, Anion Gap 8, Glomerular Filtration Rate > 60.0, Blood Urea Nitrogen 7, Creatinine 0.60L, Sodium Level 142, Potassium Level 3.6, Chloride Level 113H, Carbon Dioxide Level 21, Calcium Level 8.4L, Aspartate Amino Transf (AST/SGOT) 39H, Alanine Aminotransferase (ALT/SGPT) 66, Alkaline Phosphatase 66, Total Bilirubin 0.4, Total Protein 7.1, Albumin 3.0L, Magnesium Level 1.9, Albumin/Globulin Ratio 0.73L 07/27/16 06:56: Bedside Glucose (Misc Panel) 126H 07/27/16 11:51: Bedside Glucose (Misc Panel) 143H CBC/BMP Laboratory Tests 07/27/16 06:22 Red Blood Count 4.03 L, Mean Corpuscular Volume 90.6, Mean Corpuscular Hemoglobin 30.4, Mean Corpuscular Hemoglobin Concent 33.5, Red Cell Distribution Width 13.8, Neutrophils (%) (Auto) 63.5, Lymphocytes (%) (Auto) 19.4 L, Monocytes (%) (Auto) 8.4 H, Eosinophils (%) (Auto) 2.9, Basophils (%) ( Auto) 0.4, Neutrophils # (Auto) 3.7, Lymphocytes # (Auto) 1.4 L, Monocytes # ( Auto) 0.5, Eosinophils # (Auto) 0.2, Basophils # (Auto) 0.0, Calcium Level 8.4 L , Aspartate Amino Transf (AST/SGOT) 39 H, Alanine Aminotransferase (ALT/SGPT) 66 , Alkaline Phosphatase 66, Total Bilirubin 0.4, Total Protein 7.1, Albumin 3.0 L FSBS Laboratory Tests Test 07/26/16 16:25 07/26/16 21:01 07/27/16 06:56 07/27/16 11:51 Range/Units Bedside Glucose (Misc Panel) 122 220 126 143 70-105 MG/DL Microbiology Microbiology 07/24/16 Blood Culture - Preliminary, Resulted No Growth after 48 hours. All Specime... 07/25/16 Respiratory Virus Panel (PCR) ([facility]) - Final, Complete 07/24/16 Urine Culture - Final, Complete Escherichia Coli Discharge Medications Scheduled (Theragran-M) 1 Tab Tab, 1 TAB PO DAILY, (Reported) Amlodipine Besylate (Amlodipine Besylate) 5 Mg Tab, 5 MG PO BID, (Reported) Ascorbic Acid (Ascorbic Acid) 500 Mg Tab, 500 MG PO DAILY, (Reported) Aspirin (Aspir-81) 81 Mg Tab, 81 MG PO DAILY, (Reported) Atorvastatin Calcium (Atorvastatin Calcium) 40 Mg Tab, 40 MG PO DAILY, (Reported ) Carvedilol (Carvedilol) 6.25 Mg Tab, 6.25 MG PO BID, (Reported) Doxycycline Hyclate (Doxycycline Hyclate) 100 Mg Tab, 100 MG PO BID Gabapentin (Gabapentin) 600 Mg Tab, 600 MG PO TID, (Reported) Insulin Glargine (Lantus) 1 Units/0.01 Ml Susp, 40 UNITS SC QHS, (Reported) Levofloxacin Hemihydrate (Levaquin) 500 Mg Tab, 500 MG PO DAILY Losartan Potassium (Losartan Potassium) 100 Mg Tab, 100 MG PO DAILY, (Reported) Metformin Hydrochloride (Metformin HCl) 500 Mg Tab, 500 MG PO BID, (Reported) Topiramate (Topamax) 50 Mg Tab, 50 MG PO DAILY, (Reported) Torsemide (Torsemide) 20 Mg Tab, 40 MG PO DAILY, (Reported) Scheduled PRN (Voltaren) 1 % Gel, 1 DOSE TD for BACK PAIN, (Reported) applies to lower back Acetaminophen (Tylenol) 325 Mg Tab, 650 MG PO PRN PRN for PAIN, (Reported) Albuterol Sulfate (Ventolin Hfa) 200 Puff/8 Gm Aers, 2 PUFF INH Q4HP PRN for SHORTNESS OF BREATH, (Reported) Methocarbamol (Robaxin-750) 750 Mg Tab, 750 MG PO BID PRN for MUSCLE SPASMS, ( Reported) takes in the morning when he first starts moving, will take more prn spasms Allergies Coded Allergies: Bacitracin (Verified Allergy, Intermediate, RASH, 02/25/14) Neomycin (Verified Allergy, Intermediate, RASH, 02/25/14) Polymyxin B (Verified Allergy, Intermediate, RASH, 02/25/14) TAVIA LUIS MD July 27, 2016 14:14
[2016-07-29 00:07] LABS: Lyme Disease IgG Ab 18 kDa Ban Present (.); Lyme Disease IgG Ab 23 kDa Ban Absent (.); Lyme Disease IgG Ab 28 kDa Ban Absent (.); Lyme Disease IgG Ab 30 kDa Ban Absent (.); Lyme Disease IgG Ab 39 kDa Ban Present (.); Lyme Disease IgG Ab 41 kDa Ban Present (.); Lyme Disease IgG Ab 45 kDa Ban Absent (.); Lyme Disease IgG Ab 58 kDa Ban Absent (.); Lyme Disease IgG Ab 66 kDa Ban Present (.); Lyme Disease IgG Ab 93 kDa Ban Absent (.); Lyme Disease IgG West Blot Int Negative (.); Lyme Disease IgG/IgM Antibodie 1.67 ISR (0.00-0.90); Lyme Disease IgM Ab 23 kDa Ban Absent (.); Lyme Disease IgM Ab 39 kDa Ban Absent (.); Lyme Disease IgM Ab 41 kDa Ban Present (.); Lyme Disease IgM Ab Quantitati <0.80 index (0.00-0.79); Lyme Disease IgM West Blot Int Negative (.)
== END 2016-07-27 11:59 | disposition home or self-care (01) | DRG 720 ==
LOC: M ED 13:52 → M ED INP 18:39 → M MSPAV 19:54
PROVIDERS: ADMIT Internal Medicine; ATTEND Internal Medicine
DX: A41.9 Sepsis, unspecified organism (principal); N17.9 Acute kidney failure, unspecified; E87.2 Acidosis; N39.0 Urinary tract infection, site not specified; E11.9 Type 2 diabetes mellitus without complications; I10 Essential (primary) hypertension; F10.20 Alcohol dependence, uncomplicated; M54.5 Low back pain; B96.29 Other Escherichia coli [E. coli] as the cause of diseases classified elsewhere; Z88.8 Allergy status to other drugs, medicaments and biological substances; E78.00 Pure hypercholesterolemia, unspecified; Z79.82 Long term (current) use of aspirin; Z87.891 Personal history of nicotine dependence

== ENCOUNTER → 2016-08-16 | Outpatient (REF) | payer OTHER ==
[~2016-08-16] MED LIST changes: +ASCO500T PO; +DOXY10CA PO; +GABA600T PO; +LEVA500T PO; +LOSA100T36 PO; +TOPA50TA7 PO; +TORS20TA2 PO
[2016-08-16 12:23] LABS: ALBUMIN 3.7 GM/DL (3.2-5.2); ALBUMIN/GLOBULIN RATIO 1.06 (1.00-1.93); ALKALINE PHOSPHATASE 64 U/L (45-117); ALT/SGPT 32 U/L (12-78); ANION GAP 10 MEQ/L (8-16); AST/SGOT 23 U/L (15-37); BILIRUBIN,TOTAL 0.4 MG/DL (0.2-1.0); BLOOD UREA NITROGEN 9 MG/DL (7-18); CALCIUM LEVEL 8.9 MG/DL (8.5-10.1); CARBON DIOXIDE LEVEL 27 MEQ/L (21-32); CHLORIDE LEVEL 102 MEQ/L (98-107); CHOLESTEROL LEVEL 108 MG/DL (<200); CREATININE FOR GFR 0.67 MG/DL (0.70-1.30); GLOMERULAR FILTRATION RATE > 60.0 (>56); GLUCOSE, FASTING 137 MG/DL (70-105); POTASSIUM SERUM 3.3 MEQ/L (3.5-5.1); SODIUM LEVEL 139 MEQ/L (136-145); TOTAL PROTEIN 7.2 GM/DL (6.4-8.2); TRIGLYCERIDES LEVEL 109 MG/DL (<150)
== END ==
LOC: M SFHCPLAZ 09:25
PROVIDERS: ATTEND Nurse Practitioner Adult Health
DX: E11.9 Type 2 diabetes mellitus without complications (principal); E78.5 Hyperlipidemia, unspecified

== ENCOUNTER → 2017-02-14 | Outpatient (REF) | payer MEDICARE ==
[~2017-02-14] MED LIST changes: -ATOR40TA PO; +ATOR40TA75 PO; +DOXY100T2 PO; -DOXY10CA PO; +LEVA1TAB2 PO; -LEVA500T PO; -LOSA50TA21 PO; +LOSA50TA5 PO; -METF500T PO; +METF500T13 PO; -TOPA50TA7 PO; +TOPA50TA8 PO; +VOLT1GEL15 TD; +VOLT1GEL15 TOP; -VOLT1GEL24 TD; -VOLT1GEL24 TOP
[2017-02-14 10:51] LABS: MEAN CORPUSCULAR HEMOGLOBIN 30.6 pg (27.0-33.0); MEAN CORPUSCULAR HGB CONC 33.5 g/dl (32.0-36.5); MEAN CORPUSCULAR VOLUME 91.3 fl (80.0-96.0); PLATELET COUNT, AUTOMATED 228 10^3/uL (150-450); WHITE BLOOD COUNT 6.9 10^3/uL (4.0-10.0)
[2017-02-14 11:32] LABS: ALBUMIN 3.9 GM/DL (3.2-5.2); ALKALINE PHOSPHATASE 54 U/L (45-117); ALT/SGPT 35 U/L (12-78); ANION GAP 7 MEQ/L (8-16); AST/SGOT 18 U/L (7-37); BILIRUBIN,TOTAL 0.4 MG/DL (0.2-1.0); BLOOD UREA NITROGEN 10 MG/DL (7-18); CARBON DIOXIDE LEVEL 31 MEQ/L (21-32); CHLORIDE LEVEL 102 MEQ/L (98-107); CHOLESTEROL LEVEL 123 MG/DL (<200); CREATININE FOR GFR 0.64 MG/DL (0.70-1.30); GLOMERULAR FILTRATION RATE > 60.0 (>56); GLUCOSE, FASTING 105 MG/DL (70-105); POTASSIUM SERUM 3.5 MEQ/L (3.5-5.1); SODIUM LEVEL 140 MEQ/L (136-145); TOTAL PROTEIN 6.9 GM/DL (6.4-8.2); TRIGLYCERIDES LEVEL 78 MG/DL (<150)
== END ==
LOC: M SFHCPLAZ 09:10
PROVIDERS: ATTEND Nurse Practitioner Adult Health
DX: Z00.00 Encounter for general adult medical examination without abnormal findings (principal); E11.9 Type 2 diabetes mellitus without complications; E04.1 Nontoxic single thyroid nodule; E78.2 Mixed hyperlipidemia

== ENCOUNTER → 2017-08-14 | Outpatient (REF) | payer MEDICARE ==
[2017-08-14 11:46] LABS: ALBUMIN 4.4 GM/DL (3.2-5.2); ALBUMIN/GLOBULIN RATIO 1.19 (1.00-1.93); ALKALINE PHOSPHATASE 64 U/L (45-117); ALT/SGPT 37 U/L (12-78); ANION GAP 8 MEQ/L (8-16); AST/SGOT 19 U/L (7-37); BILIRUBIN,TOTAL 0.5 MG/DL (0.2-1.0); BLOOD UREA NITROGEN 14 MG/DL (7-18); CALCIUM LEVEL 9.1 MG/DL (8.5-10.1); CARBON DIOXIDE LEVEL 28 MEQ/L (21-32); CHLORIDE LEVEL 105 MEQ/L (98-107); CHOLESTEROL LEVEL 110 MG/DL (<200); CREATININE FOR GFR 0.81 MG/DL (0.70-1.30); ESTIMATED AVERAGE GLUCOSE 111 MG/DL (60-110); GLOMERULAR FILTRATION RATE > 60.0 (>56); GLUCOSE, FASTING 117 MG/DL (70-100); HDL CHOLESTEROL 47 MG/DL (>40); HEMOGLOBIN A1c 5.5 %; LDL CHOLESTEROL 45.6 MG/DL (<100); NON-HDL-C 63 MG/DL; POTASSIUM SERUM 3.6 MEQ/L (3.5-5.1); SODIUM LEVEL 141 MEQ/L (136-145); THYROID STIMULATING HORMONE 0.686 uIU/ML (0.358-3.740); TOTAL PROTEIN 8.1 GM/DL (6.4-8.2); TRIGLYCERIDES LEVEL 87 MG/DL (<150)
[2017-08-14 12:37] LABS: MAU/CREAT RATIO 11.7 MCG/MG (0.0-30.0)
== END ==
LOC: M SFHCPLAZ 08:42
DX: E11.9 Type 2 diabetes mellitus without complications (principal); E04.1 Nontoxic single thyroid nodule
CPT/HCPCS: 84443

== ENCOUNTER → 2018-09-19 | Outpatient (REF) | payer MEDICARE ==
[~2018-09-19] MED LIST changes: -AMLO5TAB2 PO; +AMLO5TAB6 PO; -GABA600T PO; +GABA600T4 PO; -LOSA100T36 PO; +LOSA100T50 PO; -NAPR250T45 PO; +NAPR250T82 PO; -VITA100T5 PO; +VITA100T59 PO
[2018-09-19 10:18] LABS: ALBUMIN 3.8 GM/DL (3.2-5.2); ALT/SGPT 25 U/L (12-78); BILIRUBIN,TOTAL 0.2 MG/DL (0.2-1.0); BLOOD UREA NITROGEN 17 MG/DL (7-18); CALCIUM LEVEL 9.1 MG/DL (8.5-10.1); CARBON DIOXIDE LEVEL 29 MEQ/L (21-32); CHLORIDE LEVEL 110 MEQ/L (98-107); CREATININE FOR GFR 0.91 MG/DL (0.70-1.30); GLOMERULAR FILTRATION RATE > 60.0 (>56); GLUCOSE, FASTING 112 MG/DL (70-100); POTASSIUM SERUM 4.2 MEQ/L (3.5-5.1); SODIUM LEVEL 144 MEQ/L (136-145); TOTAL PROTEIN 7.5 GM/DL (6.4-8.2)
[2018-09-19 10:21] LABS: HEMOGLOBIN A1c 6.4 %
== END ==
LOC: M SFHCPLAZ 08:10
PROVIDERS: ATTEND Nurse Practitioner Adult Health
DX: Z00.00 Encounter for general adult medical examination without abnormal findings (principal); E11.9 Type 2 diabetes mellitus without complications

== ENCOUNTER → 2019-04-02 | Outpatient (REF) | payer MEDICARE ==
[2019-04-02 17:34] LABS: MEAN CORPUSCULAR HGB CONC 27.3 g/dl (32.0-36.5); MEAN CORPUSCULAR VOLUME 73.2 fl (80.0-96.0); PLATELET COUNT, AUTOMATED 266 10^3/uL (150-450); RED BLOOD COUNT 4.51 10^6/uL (4.30-6.10); WHITE BLOOD COUNT 7.5 10^3/uL (4.0-10.0)
[2019-04-02 18:00] LABS: HEMOGLOBIN A1c 6.6 %
[2019-04-02 18:10] LABS: ALT/SGPT 33 U/L (12-78); BILIRUBIN,TOTAL 0.4 MG/DL (0.2-1.0); BLOOD UREA NITROGEN 11 MG/DL (7-18); CALCIUM LEVEL 8.9 MG/DL (8.5-10.1); CARBON DIOXIDE LEVEL 25 MEQ/L (21-32); CHLORIDE LEVEL 106 MEQ/L (98-107); CHOLESTEROL LEVEL 135 MG/DL (<200); CREATININE FOR GFR 0.76 MG/DL (0.70-1.30); GLOMERULAR FILTRATION RATE > 60.0 (>56); GLUCOSE, FASTING 90 MG/DL (70-100); HDL CHOLESTEROL 56 MG/DL (>40); LDL CHOLESTEROL 61 MG/DL (<100); NON-HDL-C 79 MG/DL; POTASSIUM SERUM 3.5 MEQ/L (3.5-5.1); SODIUM LEVEL 140 MEQ/L (136-145); TOTAL PROTEIN 7.5 GM/DL (6.4-8.2); TRIGLYCERIDES LEVEL 91 MG/DL (<150)
[2019-04-02 18:16] LABS: CREATININE, URINE 33.4 MG/DL; MALB URINE SIEMENS 7.8 MG/L; MAU/CREAT RATIO 23.3 MCG/MG (0.0-30.0)
== END ==
LOC: M SFHCPLAZ 15:51
PROVIDERS: ATTEND Nurse Practitioner Adult Health
DX: Z00.00 Encounter for general adult medical examination without abnormal findings (principal); Z12.5 Encounter for screening for malignant neoplasm of prostate; E11.9 Type 2 diabetes mellitus without complications; E04.1 Nontoxic single thyroid nodule
CPT/HCPCS: 36415; 80053; 80061; 82043; 83036; 84443; 85027; G0103

== ENCOUNTER → 2019-06-11 | Outpatient (CLI) | payer MEDICARE ==
[2019-06-11 12:18] LABS: HEMATOCRIT 37.1 % (42.0-52.0); HEMOGLOBIN 10.6 g/dl (13.5-17.5); MEAN CORPUSCULAR HEMOGLOBIN 21.9 pg (27.0-33.0); MEAN CORPUSCULAR HGB CONC 28.6 g/dl (32.0-36.5); MEAN CORPUSCULAR VOLUME 76.7 fl (80.0-96.0); PLATELET COUNT, AUTOMATED 206 10^3/uL (150-450); RED BLOOD COUNT 4.84 10^6/uL (4.30-6.10); WHITE BLOOD COUNT 8.4 10^3/uL (4.0-10.0)
[2019-06-11 12:54] LABS: PERCENT SATURATION 15.3 % (19.7-50.0)
== END ==
LOC: M LAB 10:53
PROVIDERS: ATTEND Physician Assistant Medical
DX: D64.9 Anemia, unspecified (principal)

== ENCOUNTER → 2019-08-27 | Outpatient (CLI) | payer MEDICARE ==
[~2019-08-27] MED LIST changes: +ACET650S3 PO; +GABA-843 PO; +MULTCAP PO
== END ==
LOC: M LABSMTC 11:52
PROVIDERS: ATTEND Anesthesiology
DX: Z03.818 Encounter for observation for suspected exposure to other biological agents ruled out (principal); Z11.59 Encounter for screening for other viral diseases
CPT/HCPCS: C9803; U0003

== ENCOUNTER 2019-08-30 10:10 | Day surgery (SDC) | payer MEDICARE ==
[~2019-08-30] VITALS: Ht 182.9 cm; Wt 112.0 kg
[~2019-08-30 10:10] MED LIST changes: +NS 1,000 ML IV ONE
--- NOTE | 2019-08-30 12:26 | ROOR ---
Patient Name: Huang Castaneda Procedure Date: 08/30/2019 12:05 PM Date of : 1960 Age: 59 Room: [facility] Gender: Male Note Status: Finalized Procedure: Upper GI endoscopy Indications: Iron deficiency anemia Providers: Miguel Ángel RENEE MD Referring MD: Sonya BENTLEY NP Requesting Provider: Medicines: Monitored Anesthesia Care Complications: No immediate complications. Procedure: Pre-Anesthesia Assessment: - The heart rate, respiratory rate, oxygen saturations, blood pressure, adequacy of pulmonary ventilation, and response to care were monitored throughout the procedure. The Endoscope was introduced through the mouth, and advanced to the second part of duodenum. The upper GI endoscopy was accomplished without difficulty. The patient tolerated the procedure well. Findings: Mildly severe esophagitis was found at the gastroesophageal junction. Biopsies were taken with a cold forceps for histology. Scattered mild inflammation characterized by linear erosions was found in the gastric antrum. Biopsies were taken with a cold forceps for Helicobacter pylori testing. The examined duodenum was normal. Biopsies for histology were taken with a cold forceps for evaluation of celiac disease. Impression: - Mildly severe esophagitis. Biopsied. - Mild erosive gastritis. Biopsied. - Normal examined duodenum. Biopsied. Recommendation: - Use Prilosec (omeprazole) 40 mg PO daily. - Telephone endoscopist for pathology results in 2 weeks. - No ibuprofen, naproxen, or other non-steroidal anti-inflammatory drugs. - Return to referring physician as previously scheduled. Miguel Ángel Renee MD Miguel Ángel RENEE MD 08/30/2019 12:26:15 PM Electronically signed by Miguel Ángel RENEE MD Number of Addenda: 0 Note Initiated On: 08/30/2019 12:05 PM Estimated Blood Loss: Estimated blood loss: none.
[2019-08-30] MEDS ORDERED: propofoL 200 MG/20 ML VIAL As Ordered ONE (12:45)
[2019-08-30] MEDS ORDERED: LIDOCAINE 2% 100MG/5ML SDV (FOR ANES.) As Ordered ONE (12:45)
--- NOTE | 2019-08-30 12:52 | ROOR ---
Patient Name: Huang Castaneda Procedure Date: 08/30/2019 12:06 PM Date of : 1960 Age: 59 Room: [facility] Gender: Male Note Status: Finalized Procedure: Colonoscopy Indications: Iron deficiency anemia, Follow-up for history of adenomatous polyps in the colon Providers: Miguel Ángel RENEE MD Referring MD: Sonya BENTLEY NP Requesting Provider: Medicines: Monitored Anesthesia Care Complications: No immediate complications. Procedure: Pre-Anesthesia Assessment: - The heart rate, respiratory rate, oxygen saturations, blood pressure, adequacy of pulmonary ventilation, and response to care were monitored throughout the procedure. The Colonoscope was introduced through the anus and advanced to 10 cm into the ileum. The colonoscopy was performed without difficulty. The patient tolerated the procedure well. The quality of the bowel preparation was fair. Findings: The perianal and digital rectal examinations were normal. Two flat polyps were found in the splenic flexure. The polyps were 5 to 10 mm in size. These polyps were removed with a piecemeal technique using a hot snare. Resection and retrieval were complete. A 5 mm polyp was found in the rectum. The polyp was sessile. The polyp was removed with a cold snare. Resection and retrieval were complete. Internal hemorrhoids were found during retroflexion. The hemorrhoids were medium-sized. The exam was otherwise without abnormality. Impression: - Preparation of the colon was fair. - Two 5 to 10 mm polyps at the splenic flexure, removed piecemeal using a hot snare. Resected and retrieved. - One 5 mm polyp in the rectum, removed with a cold snare. Resected and retrieved. - Internal hemorrhoids. - The examination was otherwise normal. Recommendation: - Repeat colonoscopy in 2 years because the bowel preparation was suboptimal. - Telephone endoscopist for pathology results in 2 weeks. Miguel Ángel Renee MD Miguel Ángel RENEE MD 08/30/2019 12:52:16 PM Electronically signed by Miguel Ángel RENEE MD Number of Addenda: 0 Note Initiated On: 08/30/2019 12:06 PM Estimated Blood Loss: Estimated blood loss: none.
[2019-08-30 13:43] VITALS: BP 120/64
== END 2019-08-30 13:42 | disposition home or self-care (01) ==
LOC: M OPP 10:10
PROVIDERS: ATTEND Internal Medicine Gastroenterology
DX: D12.3 Benign neoplasm of transverse colon (principal); K62.1 Rectal polyp; K64.8 Other hemorrhoids; Z86.010 Personal history of colon polyps; Z80.0 Family history of malignant neoplasm of digestive organs; D50.9 Iron deficiency anemia, unspecified; K20.9 Esophagitis, unspecified; K29.70 Gastritis, unspecified, without bleeding; Z79.82 Long term (current) use of aspirin; Z79.84 Long term (current) use of oral hypoglycemic drugs; Z79.899 Other long term (current) drug therapy; Z88.1 Allergy status to other antibiotic agents

== ENCOUNTER → 2019-11-19 | Outpatient (CLI) | payer MEDICARE ==
[~2019-11-19] MED LIST changes: +AMLO1TAB24 PO; -AMLO5TAB6 PO; -ASPI81TA85 PO; +ASPI81TA86 PO; -NS 1,000 ML IV ONE
[2019-11-19 15:36] LABS: HEMATOCRIT 40.6 % (42.0-52.0); HEMOGLOBIN 13.3 g/dl (13.5-17.5); MEAN CORPUSCULAR HGB CONC 32.8 g/dl (32.0-36.5); MEAN CORPUSCULAR VOLUME 88.5 fl (80.0-96.0); PLATELET COUNT, AUTOMATED 213 10^3/uL (150-450); RED BLOOD COUNT 4.59 10^6/uL (4.30-6.10); WHITE BLOOD COUNT 10.6 10^3/uL (4.0-10.0)
[2019-11-19 16:56] LABS: HEMOGLOBIN A1c 6.1 %
[2019-11-19 23:01] LABS: ALT/SGPT 31 U/L (12-78); BILIRUBIN,TOTAL 0.6 MG/DL (0.2-1.0); BLOOD UREA NITROGEN 10 MG/DL (7-18); CARBON DIOXIDE LEVEL 28 MEQ/L (21-32); CHLORIDE LEVEL 106 MEQ/L (98-107); CHOLESTEROL LEVEL 129 MG/DL (<200); CHOLESTEROL RISK RATIO 2.687 (<5); CREATININE FOR GFR 0.98 MG/DL (0.70-1.30); GLOMERULAR FILTRATION RATE > 60.0 (>49); GLUCOSE, FASTING 121 MG/DL (70-100); HDL CHOLESTEROL 48 MG/DL (>40); LDL CHOLESTEROL 58 MG/DL (<100); NON-HDL-C 81 MG/DL; SODIUM LEVEL 141 MEQ/L (136-145); TOTAL PROTEIN 7.3 GM/DL (6.4-8.2); TRIGLYCERIDES LEVEL 116 MG/DL (<150)
== END ==
LOC: M PLALAB 10:17
PROVIDERS: ATTEND Nurse Practitioner Adult Health
DX: E11.9 Type 2 diabetes mellitus without complications (principal); K20.9 Esophagitis, unspecified; K29.60 Other gastritis without bleeding; D63.8 Anemia in other chronic diseases classified elsewhere

== ENCOUNTER → 2020-09-02 | Outpatient (REF) | payer MEDICARE ==
[~2020-09-02] MED LIST changes: +GABA-282 PO; -GABA-843 PO
[2020-09-02 18:31] LABS: ALT/SGPT 35 U/L (12-78); BILIRUBIN,TOTAL 0.5 MG/DL (0.2-1.0); BLOOD UREA NITROGEN 12 MG/DL (7-18); CALCIUM LEVEL 9.1 MG/DL (8.8-10.2); CARBON DIOXIDE LEVEL 25 MEQ/L (21-32); CHLORIDE LEVEL 107 MEQ/L (98-107); CHOLESTEROL LEVEL 146 MG/DL (<200); CHOLESTEROL RISK RATIO 3.106 (<5); CREATININE FOR GFR 0.79 MG/DL (0.70-1.30); GLOMERULAR FILTRATION RATE > 60.0 (>49); GLUCOSE, FASTING 94 MG/DL (70-100); HDL CHOLESTEROL 47 MG/DL (>40); LDL CHOLESTEROL 72 MG/DL (<100); NON-HDL-C 99 MG/DL; SODIUM LEVEL 142 MEQ/L (136-145); THYROID STIMULATING HORMONE 0.948 uIU/ML (0.358-3.740); TOTAL PROTEIN 7.6 GM/DL (6.4-8.2); TRIGLYCERIDES LEVEL 136 MG/DL (<150)
[2020-09-02 20:49] LABS: HEMOGLOBIN A1c 5.4 %
== END ==
LOC: M SFHCPLAZ 14:24
PROVIDERS: ATTEND Nurse Practitioner Adult Health
DX: E04.1 Nontoxic single thyroid nodule (principal); E11.9 Type 2 diabetes mellitus without complications; E78.2 Mixed hyperlipidemia; Z12.5 Encounter for screening for malignant neoplasm of prostate
CPT/HCPCS: 36415; 80053; 80061; 83036; 84443; G0103

== ENCOUNTER → 2021-03-03 | Outpatient (CLI) | payer MEDICARE ==
[~2021-03-03] MED LIST changes: +LOSA100T45 PO; -LOSA100T50 PO
[2021-03-03 13:08] LABS: HEMOGLOBIN 12.2 g/dl (13.5-17.5); MEAN CORPUSCULAR HEMOGLOBIN 27.2 pg (27.0-33.0); MEAN CORPUSCULAR HGB CONC 31.3 g/dl (32.0-36.5); MEAN CORPUSCULAR VOLUME 87.1 fl (80.0-96.0); PLATELET COUNT, AUTOMATED 270 10^3/uL (150-450); RED BLOOD COUNT 4.48 10^6/uL (4.30-6.10); WHITE BLOOD COUNT 9.9 10^3/uL (4.0-10.0)
[2021-03-03 13:45] LABS: HEMOGLOBIN A1c 5.7 %
[2021-03-03 14:09] LABS: ALBUMIN 3.6 GM/DL (3.2-5.2); ALT/SGPT 29 U/L (12-78); BILIRUBIN,TOTAL 0.3 MG/DL (0.2-1.0); BLOOD UREA NITROGEN 10 MG/DL (7-18); CARBON DIOXIDE LEVEL 25 MEQ/L (21-32); CHLORIDE LEVEL 108 MEQ/L (98-107); FERRITIN 16 NG/ML (26-388); GLOMERULAR FILTRATION RATE > 60.0 (>49); GLUCOSE, FASTING 95 MG/DL (70-100); IRON (FE) 31 UG/DL (65-175); PERCENT SATURATION 8.1 % (19.7-50.0); POTASSIUM SERUM 4.1 MEQ/L (3.5-5.1); SODIUM LEVEL 140 MEQ/L (136-145); THYROID STIMULATING HORMONE 0.624 uIU/ML (0.358-3.740); TOTAL IRON BINDING CAPACITY 383 UG/DL (250-450); TOTAL PROTEIN 7.4 GM/DL (6.4-8.2)
== END ==
LOC: M PLALAB 11:14
PROVIDERS: ATTEND Nurse Practitioner Adult Health
DX: E04.1 Nontoxic single thyroid nodule (principal); E11.9 Type 2 diabetes mellitus without complications; I10 Essential (primary) hypertension; Z23 Encounter for immunization
CPT/HCPCS: 36415; 80053; 82728; 83036; 83550; 84443; 85027; 90471; 90715; G0463; G8483

== ENCOUNTER → 2021-10-18 | Outpatient (REF) | payer MEDICARE ==
[2021-10-18 13:40] LABS: HEMATOCRIT 40.3 % (42.0-52.0); MEAN CORPUSCULAR HEMOGLOBIN 29.1 pg (27.0-33.0); MEAN CORPUSCULAR HGB CONC 32.3 g/dl (32.0-36.5); MEAN CORPUSCULAR VOLUME 90.4 fl (80.0-96.0); PLATELET COUNT, AUTOMATED 245 10^3/uL (150-450); RED BLOOD COUNT 4.46 10^6/uL (4.30-6.10); WHITE BLOOD COUNT 8.2 10^3/uL (4.0-10.0)
[2021-10-18 15:43] LABS: BLOOD UREA NITROGEN 10 MG/DL (7-18); GLUCOSE, FASTING 131 MG/DL (70-100)
[2021-10-18 15:44] LABS: ALBUMIN 3.9 GM/DL (3.2-5.2); ALT/SGPT 36 IU/L (0-32); BILIRUBIN,TOTAL 0.3 MG/DL (0.2-1.0); CALCIUM LEVEL 9.5 MG/DL (8.8-10.2); CARBON DIOXIDE LEVEL 21 mmol/L (20-29); CHLORIDE LEVEL 114 MEQ/L (98-107); GLOMERULAR FILTRATION RATE > 60.0 (>49); IRON (FE) 55 UG/DL (65-175); SODIUM LEVEL 142 MEQ/L (136-145); TOTAL PROTEIN 7.4 GM/DL (6.4-8.2)
[2021-10-18 15:45] LABS: FERRITIN 24 NG/ML (26-388); THYROID STIMULATING HORMONE 0.403 uIU/ML (0.358-3.740)
[2021-10-19 00:21] LABS: HEMOGLOBIN A1c 5.2 %
== END ==
LOC: M SFHCPLAZ 12:50
PROVIDERS: ATTEND Nurse Practitioner Adult Health
DX: Z12.5 Encounter for screening for malignant neoplasm of prostate (principal); I10 Essential (primary) hypertension; E04.1 Nontoxic single thyroid nodule; E11.9 Type 2 diabetes mellitus without complications
CPT/HCPCS: 80053; 82728; 83036; 83540; 84443; 85027; G0103

== ENCOUNTER → 2021-12-14 | Outpatient (CLI) | payer MEDICARE ==
[~2021-12-14] MED LIST changes: +BAYE81TA10 PO; +BUPR150T12 PO; +FERR325T3 PO; +FLUTISP; +GLUCAGON INJ 1MG VIAL As Ordered ONE; +ISOVUE-370 76% 100ML VIAL As Ordered ONE; +LORA-674 PO; +METF-838 PO; +NEULUMEX 0.1% SUSPENSION 450ML BOTTLE (FORMERLY VOLUMEN) As Ordered ONE; +TOPI100T9 PO; +VITMTA PO
[2021-12-14 12:31] LABS: BLOOD UREA NITROGEN 8 MG/DL (7-18); CREATININE FOR GFR 0.89 MG/DL (0.70-1.30); GLOMERULAR FILTRATION RATE > 60.0 (>49)
== END ==
LOC: M RAD 10:42
PROVIDERS: ATTEND Physician Assistant Medical
DX: D50.9 Iron deficiency anemia, unspecified (principal); R63.4 Abnormal weight loss; N40.0 Benign prostatic hyperplasia without lower urinary tract symptoms; K76.89 Other specified diseases of liver
CPT/HCPCS: 36415; 74177; 82565; 84520; J1610; Q9967

== ENCOUNTER → 2021-12-15 | Outpatient (CLI) | payer MEDICARE ==
[~2021-12-15] MED LIST changes: -GLUCAGON INJ 1MG VIAL As Ordered ONE; -ISOVUE-370 76% 100ML VIAL As Ordered ONE; -NEULUMEX 0.1% SUSPENSION 450ML BOTTLE (FORMERLY VOLUMEN) As Ordered ONE
== END ==
LOC: M LABSMTC 10:48
PROVIDERS: ATTEND Anesthesiology
DX: Z01.812 Encounter for preprocedural laboratory examination (principal); Z11.52 Encounter for screening for COVID-19

== ENCOUNTER 2021-12-20 07:27 | Day surgery (SDC) | payer MEDICARE ==
[~2021-12-20] VITALS: Ht 182.9 cm; Wt 90.7 kg
[~2021-12-20 07:27] MED LIST changes: +NS 1,000 ML IV ONE
[2021-12-20] MEDS ORDERED: fentaNYL 100 MCG/2 ML INJECTION As Ordered ONE (08:25)
[2021-12-20] MEDS ORDERED: propofoL 200 MG/20 ML VIAL As Ordered ONE ×2 (08:25→08:46)
[2021-12-20] MEDS ORDERED: LIDOCAINE 2% 100MG/5ML SDV (FOR ANES.) As Ordered ONE (08:26)
[2021-12-20 09:35] VITALS: BP 186/87
== END 2021-12-20 09:46 | disposition home or self-care (01) ==
LOC: M OPP 07:27
PROVIDERS: ATTEND Internal Medicine Gastroenterology
DX: D12.2 Benign neoplasm of ascending colon (principal); D12.3 Benign neoplasm of transverse colon; D12.0 Benign neoplasm of cecum; K64.8 Other hemorrhoids; D50.9 Iron deficiency anemia, unspecified; Z80.0 Family history of malignant neoplasm of digestive organs; K22.89 Other specified disease of esophagus; K29.70 Gastritis, unspecified, without bleeding; K29.80 Duodenitis without bleeding; Z79.02 Long term (current) use of antithrombotics/antiplatelets; Z79.52 Long term (current) use of systemic steroids; Z79.82 Long term (current) use of aspirin; Z79.84 Long term (current) use of oral hypoglycemic drugs; Z79.899 Other long term (current) drug therapy; Z88.1 Allergy status to other antibiotic agents; I10 Essential (primary) hypertension; E11.9 Type 2 diabetes mellitus without complications; M48.00 Spinal stenosis, site unspecified; Z87.891 Personal history of nicotine dependence; Z80.1 Family history of malignant neoplasm of trachea, bronchus and lung
CPT/HCPCS: 43239; 45385; 88305; J3010

== ENCOUNTER → 2024-04-05 | Outpatient (CLI) | payer MEDICARE ==
[~2024-04-05] MED LIST changes: +GABA-1172 PO; +GABA-1490 PO; -GABA-282 PO; -GABA600T4 PO; +LORA-1041 PO; -LORA-674 PO; -LOSA100T45 PO; +LOSA100T46 PO; -NS 1,000 ML IV ONE
[2024-04-05 12:59] LABS: BASO # 0.1 10^3/uL (0.0-0.2); BASO % 0.6 % (0.0-1.0); EOS # 0.4 10^3/uL (0.0-0.5); EOS % 3.1 % (0.0-3.0); HEMATOCRIT 47.5 % (42.0-52.0); HEMOGLOBIN 16.1 g/dl (13.5-17.5); LYMPH # 2.4 10^3/uL (1.5-5.0); LYMPH % 18.8 % (24.0-44.0); MEAN CORPUSCULAR HEMOGLOBIN 31.7 pg (27.0-33.0); MEAN CORPUSCULAR HGB CONC 33.9 g/dl (32.0-36.5); MEAN CORPUSCULAR VOLUME 93.5 fl (80.0-96.0); MONO # 0.7 10^3/uL (0.0-0.8); MONO % 5.8 % (2.0-8.0); NEUTROPHILS # 8.9 10^3/uL (1.5-8.5); NEUTROPHILS % 71.4 % (36.0-66.0); PLATELET COUNT, AUTOMATED 228 10^3/uL (150-450); RED BLOOD COUNT 5.08 10^6/uL (4.30-6.10); WHITE BLOOD COUNT 12.5 10^3/uL (4.0-10.0)
[2024-04-05 13:07] LABS: INR 1.17; PARTIAL THROMBOPLASTIN TIME 29.7 SECONDS (24.8-34.2); PROTHROMBIN TIME 15.2 SECONDS (12.5-14.5)
[2024-04-05 13:19] LABS: HEMOGLOBIN A1c 5.1 % (4.0-6.0)
[2024-04-05 13:28] LABS: ALBUMIN 4.2 G/DL (3.2-5.2); ALKALINE PHOSPHATASE 65 U/L (40-129); ALT/SGPT 22 U/L (7.0-40); AST/SGOT 17 U/L (<34); BILIRUBIN,TOTAL 0.5 MG/DL (0.3-1.2); BLOOD UREA NITROGEN 16 MG/DL (9-23); CALCIUM LEVEL 9.6 MG/DL (8.3-10.6); CARBON DIOXIDE LEVEL 32 MMOL/L (20-31); CHLORIDE LEVEL 107 MMOL/L (98-107); CREATININE FOR GFR 0.89 MG/DL (0.70-1.30); GLOMERULAR FILTRATION RATE > 60.0 (>49); GLUCOSE, FASTING 77 MG/DL (74-106); SODIUM LEVEL 143 MMOL/L (136-145); TOTAL PROTEIN 7.5 G/DL (5.7-8.2)
[2024-04-05 13:31] LABS: FERRITIN 27.5 NG/ML (10.5-307.3)
== END ==
LOC: M PLALAB 11:32
PROVIDERS: ATTEND Family Medicine
DX: D50.9 Iron deficiency anemia, unspecified (principal); I10 Essential (primary) hypertension; E11.9 Type 2 diabetes mellitus without complications

== ENCOUNTER → 2024-08-12 | Outpatient (CLI) | payer MEDICARE ==
[~2024-08-12] MED LIST changes: +TOPI-257 PO; -TOPI100T9 PO
[2024-08-12 14:17] LABS: BASO # 0.1 10^3/uL (0.0-0.2); BASO % 0.9 % (0.0-1.0); EOS # 0.4 10^3/uL (0.0-0.5); EOS % 3.5 % (0.0-3.0); HEMATOCRIT 46.3 % (42.0-52.0); HEMOGLOBIN 15.3 g/dl (13.5-17.5); LYMPH % 19.3 % (24.0-44.0); MEAN CORPUSCULAR HEMOGLOBIN 31.5 pg (27.0-33.0); MEAN CORPUSCULAR VOLUME 95.5 fl (80.0-96.0); MONO # 0.5 10^3/uL (0.0-0.8); MONO % 4.9 % (2.0-8.0); NEUTROPHILS # 7.4 10^3/uL (1.5-8.5); NEUTROPHILS % 71.1 % (36.0-66.0); PLATELET COUNT, AUTOMATED 230 10^3/uL (150-450); RED BLOOD COUNT 4.85 10^6/uL (4.30-6.10); WHITE BLOOD COUNT 10.4 10^3/uL (4.0-10.0)
[2024-08-12 14:33] LABS: ALBUMIN 3.9 G/DL (3.2-5.2); BILIRUBIN,TOTAL 0.3 MG/DL (0.3-1.2); CALCIUM LEVEL 9.6 MG/DL (8.3-10.6); CREATININE FOR GFR 1.03 MG/DL (0.70-1.30); GLOMERULAR FILTRATION RATE 80.6 (>49); POTASSIUM SERUM 4.4 MMOL/L (3.5-5.1); TOTAL PROTEIN 7.1 G/DL (5.7-8.2)
[2024-08-12 14:34] LABS: FERRITIN 34.1 NG/ML (10.5-307.3)
== END ==
LOC: M PLALAB 11:32
PROVIDERS: ATTEND Family Medicine
DX: I10 Essential (primary) hypertension (principal); E11.9 Type 2 diabetes mellitus without complications; D50.9 Iron deficiency anemia, unspecified